=== PATIENT | male | born 1950 | race Asian ===

== ENCOUNTER → 2018-06-15 | Outpatient (CLI) | payer OTHER ==
[~2018-06-15] MED LIST: ATOR10TA9 PO
== END | disposition home or self-care (01) ==
LOC: STAR 14:45
PROVIDERS: ATTEND Surgery
DX: Z01.818 Encounter for other preprocedural examination (principal); K40.90 Unilateral inguinal hernia, without obstruction or gangrene, not specified as recurrent
CPT/HCPCS: 93005

== ENCOUNTER 2018-06-26 10:23 | Day surgery (SDC) | payer OTHER ==
[~2018-06-26] VITALS: Ht 167.6 cm; Wt 63.6 kg
[~2018-06-26 10:23] MED LIST changes: +BUPIVACAINE/PF-EPI 0.5% 1:200K ONE
[2018-06-26 10:50] VITALS: BP 166/104
[2018-06-26] MEDS ORDERED: LACTATED RINGERS 1,000 ML IV SCH (10:54)
[2018-06-26] MEDS ORDERED: FENTANYL PF 250 MCG/5ML ONE (12:37)
[2018-06-26] MEDS ORDERED: MIDAZOLAM 1 MG/ML, 2ML ONE (12:37)
[2018-06-26] MEDS ORDERED: GLYCOPYRROLATE 0.2MG/1ML, 5ML ONE (12:48)
[2018-06-26] MEDS ORDERED: NEOSTIGMINE 1 MG/ML, 10ML ONE (12:48)
[2018-06-26] MEDS ORDERED: ROCURONIUM 10 MG/ML,10ML ONE (12:48)
[2018-06-26] MEDS ORDERED: CEFAZOLIN 1,000 MG ONE (12:48)
[2018-06-26] MEDS ORDERED: PROPOFOL 10 MG/ML, 20ML ONE (12:48)
[2018-06-26] MEDS ORDERED: MORPHINE SULFATE 4 MG/ML, 1ML IVPush PRN (13:00)
[2018-06-26] MEDS ORDERED: ONDANSETRON 2MG/ML, 2ML IV PRN (13:00)
[2018-06-26] MEDS ORDERED: ONDANSETRON ODT 8 MG PO PRN (13:00)
[2018-06-26] MEDS ORDERED: HYDROmorphone 1 MG/ML, 1ML IV PRN (13:00)
[2018-06-26] MEDS ORDERED: PROMETHAZINE 25 MG SUPP PR PRN (13:00)
[2018-06-26] MEDS ORDERED: PROMETHAZINE 25 MG/ML, 1ML IV PRN (13:00)
[2018-06-26] MEDS ORDERED: MEPERIDINE/PF 25MG/0.5ML IVPush PRN (13:00)
[2018-06-26] MEDS ORDERED: PROMETHAZINE 12.5 MG SUPP PR PRN (13:00)
[2018-06-26] MEDS ORDERED: hydrALAzine 20 MG/ML, 1ML IV PRN (13:00)
[2018-06-26] MEDS ORDERED: LABETALOL 5MG/ML, 20ML IV PRN (13:00)
[2018-06-26] MEDS ORDERED: OXYcodone 5 MG/5 ML ORAL.SOL UDC PO PRN (13:00)
[2018-06-26] MEDS ORDERED: PROMETHAZINE 25 MG/ML, 1ML IM PRN ×2 (13:00)
[2018-06-26] MEDS ORDERED: OXYcodone 5 MG/5 ML ORAL.SOL UDC ONE (14:16)
[2018-06-26] MEDS ORDERED: FENTANYL PF 100 MCG/2ML ONE ×2 (14:16→14:56)
[2018-06-26] MEDS: FENTANYL PF 100 MCG/2ML IV PRN ×4 (14:25→14:57)
== END 2018-06-26 17:25 | disposition home or self-care (01) ==
LOC: OUT 10:23
PROVIDERS: ATTEND Surgery
DX: K40.90 Unilateral inguinal hernia, without obstruction or gangrene, not specified as recurrent (principal); E78.5 Hyperlipidemia, unspecified; Z79.899 Other long term (current) drug therapy; Z87.891 Personal history of nicotine dependence; Z72.89 Other problems related to lifestyle; Z98.890 Other specified postprocedural states
CPT/HCPCS: 49650; J0690; J2250; J2704; J2710; J3010; J3490; S2900; C1781